=== PATIENT | male | born 1955 ===

== ENCOUNTER 2019-05-30 15:05 | Emergency (ER) | payer OTHER ==
[2019-05-30 15:36] VITALS: BP 162/100
--- NOTE | 2019-05-30 15:47 | UC ---
Back Pain HPI - HPI Summary HPI Summary: Pt presents with c/o sudden onset of "catching" left side low back pain after he bent over to tie his shoe yesterday afternoon. Pt states that when he bends over he will get a painful "catch" that takes his breath away. Denies injury past or present, denies loss of bowel or bladder control. Denies tingling or paresthesias. - History of Current Complaint Chief Complaint: UCBackPain Stated Complaint: BACK PAIN Time Seen by Provider: 05/30/19 15:38 Hx Obtained From: Patient Onset/Duration: Sudden Onset, Lasting Days, Still Present Timing: Intermittent, Lasting Seconds Severity Initially: Moderate Severity Currently: Mild Pain Intensity: 8 Back Pain: Is Discrete @ - left lower back Character: Sharp, Stiffness Aggravating Factor(s): Movement, Bending Alleviating Factor(s): Rest, Position Associated Signs And Symptoms: Positive: Negative - Risk Factors AAA Risk Factors: Negative TAD Risk Factors: Negative Cauda Equina Risk Factors: Negative Epidural Abscess Risk Factors: Negative - Allergies/Home Medications Allergies/Adverse Reactions: Allergies Allergy/AdvReac Type Severity Reaction Status Date / Time No Known Allergies Allergy Verified 05/30/19 15:28 Home Medications: Home Medications Acetaminophen [Acetaminophen Extra Strength] 1,000 mg PO Q6H PRN 05/30/19 [ History Confirmed 05/30/19] Fs Glucose 1 SEE INSTRUCTIONS 05/30/19 [History] Lisinopril TAB* [Prinivil TAB*] 20 mg PO DAILY 05/30/19 [History Confirmed 05/29] Pravastatin Sodium 20 mg PO DAILY 05/30/19 [History Confirmed 05/30/19] PMH/Surg Hx/FS Hx/Imm Hx Previously Healthy: Yes - Surgical History Surgical History: Yes Surgery Procedure, Year, and Place: tonsilectomy - Family History Known Family History: Positive: Cardiac Disease - Social History Occupation: Employed Full-time Lives: With Family Alcohol Use: None Substance Use Type: None Smoking Status (MU): Former Smoker Have You Smoked in the Last Year: No When Did the Patient Quit Smoking/Using Tobacco: 1991 Review of Systems All Other Systems Reviewed And Are Negative: Yes Constitutional: Positive: Negative Skin: Positive: Negative Eyes: Positive: Negative ENT: Positive: Negative Respiratory: Positive: Negative Cardiovascular: Positive: Negative Gastrointestinal: Positive: Negative Genitourinary: Positive: Negative Motor: Positive: Negative Neurovascular: Positive: Negative Musculoskeletal: Positive: Myalgia - intermittent low back pain Neurological/Mental Status: Positive: Negative Psychological: Positive: Negative Is Patient Immunocompromised?: No Physical Exam Triage Information Reviewed: Yes Appearance: Well-Appearing Vital Signs: Initial Vital Signs Temp 98.5 F 05/30/19 15:31 Pulse 116 05/30/19 15:31 Resp 20 05/30/19 15:31 BP 162/100 05/30/19 15:31 Pulse Ox 96 05/30/19 15:31 Vital Signs Reviewed: Yes Eye Exam: Normal ENT Exam: Normal Dental Exam: Normal Neck exam: Normal Respiratory Exam: Normal Respiratory: Positive: No respiratory distress Musculoskeletal Exam: Normal Musculoskeletal: Positive: Strength Intact, ROM Intact Neurological Exam: Normal Psychological Exam: Normal Skin Exam: Normal Back Pain Course/Dx - Differential Dx/Diagnosis Differential Diagnosis/HQI/PQRI: Herniated Disc, Neoplasm, Strain, Sprain Provider Diagnosis: Low back pain Discharge ED - Sign-Out/Discharge Documenting (check all that apply): Patient Departure All imaging exams completed and their final reports reviewed: No Studies - Discharge Plan Condition: Stable Disposition: HOME Patient Education Materials: Low Back Strain (ED), Lower Back Exercises (ED) Forms: *Work Release Referrals: Karissa Howe PA [Primary Care Provider] - 1 Week - Billing Disposition and Condition Condition: STABLE Disposition: Home
== END 2019-05-30 15:53 | disposition home or self-care (01) ==
LOC: UCCORT 15:05
DX: M54.5 Low back pain (principal); Z87.891 Personal history of nicotine dependence
CPT/HCPCS: 99211; G0463